=== PATIENT | female | born 1960 | race Caucasian/White ===

== ENCOUNTER → 2021-03-16 | Outpatient (CLI) | payer OTHER ==
--- NOTE | 2021-03-16 15:29 | REP ---
INDICATION: L HAND INJURY, R/O MC FX. COMPARISON: None. TECHNIQUE: Four views FINDINGS: The joint spaces are symmetric and relatively well maintained. There is no evidence of acute fracture or destructive osseous lesion. IMPRESSION: Negative hand. <Electronically signed by Po Joseph > 03/16/21 [id number]
== END ==
LOC: M RAD 15:02
PROVIDERS: ATTEND Physician Assistant Medical
DX: S69.92XA Unspecified injury of left wrist, hand and finger(s), initial encounter (principal); X58.XXXA Exposure to other specified factors, initial encounter; Y92.9 Unspecified place or not applicable; Y99.9 Unspecified external cause status

== ENCOUNTER → 2023-02-07 | Outpatient (REF) | payer OTHER | LOC: M SFHCWAGY 17:59 | PROVIDERS: ATTEND Nurse Practitioner Family | DX: Z12.4 Encounter for screening for malignant neoplasm of cervix (principal) ==

== ENCOUNTER → 2023-02-25 | Outpatient (CLI) | payer OTHER | LOC: M WHC 10:38 | PROVIDERS: ATTEND Nurse Practitioner Family | DX: Z12.31 Encounter for screening mammogram for malignant neoplasm of breast (principal) ==

== ENCOUNTER → 2024-03-28 | Outpatient (CLI) | payer OTHER | LOC: M WHC 13:47 | PROVIDERS: ATTEND Nurse Practitioner Family | DX: Z12.31 Encounter for screening mammogram for malignant neoplasm of breast (principal) ==

== ENCOUNTER → 2024-03-28 | Outpatient (REF) | payer OTHER ==
[2024-04-05 13:17] LABS: HPV APTIMA Not Detected (Not Detected)
== END ==
LOC: M SFHCWAGY 09:40
PROVIDERS: ATTEND Nurse Practitioner Family
DX: Z12.4 Encounter for screening for malignant neoplasm of cervix (principal); R87.610 Atypical squamous cells of undetermined significance on cytologic smear of cervix (ASC-US)
CPT/HCPCS: 87624; G0123